=== PATIENT | female | born 1945 | race Caucasian/White ===

== ENCOUNTER 2024-11-29 10:22 | Emergency (ER) | payer OTHER ==
[2024-11-29 10:45] VITALS: RESP 16; TEMP 98.8; BMI 26.2
[2024-11-29 12:51] LABS: BASO % 0.8 % (0-2.0); EOS % 0.7 % (0-4.5); HEMATOCRIT 37.8 % (32.4-45.2); HEMOGLOBIN 12.7 GM/dL (10.7-15.3); LYMPH % 15.3 % (8-40); MCH 30.4 pg (25.7-33.7); MCHC 33.6 g/dl (32.0-36.0); MEAN CELL VOLUME 90.4 fl (80-96); MEAN PLT VOLUME 10.2 fl (7.5-11.1); MONO % 10.2 % (3.8-10.2); PLATELET COUNT 220 10^3/uL (134-434); RBC 4.18 M/mm3 (3.60-5.2); RDW 14.1 % (11.6-15.6)
[2024-11-29 12:55] LABS: INR 1.14 (0.83-1.09); PROTHROMBIN TIME (PATIENT) 12.4 SEC (9.7-13.0)
[2024-11-29 12:57] LABS: ACTIVATED PTT 29.7 SECONDS (25.2-36.5)
[2024-11-29 13:05] LABS: POTASSIUM 4.4 mmol/L (3.5-5.1)
[2024-11-29 13:06] LABS: ALBUMIN 3.9 g/dl (3.4-5.0); CALCIUM 9.6 mg/dL (8.5-10.1)
[2024-11-29 13:09] LABS: BLOOD UREA NITROGEN 14.7 mg/dL (7-18)
[2024-11-29 13:10] LABS: CREATININE 0.5 mg/dL (0.55-1.3)
[2024-11-29 13:11] LABS: TOT PROT 7.4 g/dl (6.4-8.2)
[2024-11-29 13:13] LABS: BILIRUBIN,TOTAL 0.6 mg/dL (0.2-1)
[2024-11-29 18:35] VITALS: BP 181/82; PULSE 88
== END 2024-11-29 19:42 | disposition home or self-care (01) ==
LOC: JER 10:22
DX: D49.6 Neoplasm of unspecified behavior of brain (principal); R53.1 Weakness
CPT/HCPCS: 36415; 70450-TC; 80053; 80061; 82550; 83036; 84484; 85025; 85610; 85730; 86850; 86900; 86901; 93005; 93010; 99285-25